=== PATIENT | female | born 1960 | race Caucasian/White ===

== ENCOUNTER 2024-12-11 09:14 | Emergency (ER) | payer BC, SELFPAY ==
[2024-12-11] VITALS (14 sets, daily range): BP systolic 104–149; BP diastolic 68–120; PULSE 76–95; RESP 14–18; TEMP 36.7–36.8; O2SAT 93–100; BMI 29.9
--- NOTE | 2024-12-11 09:44 | EKG12_ITS ---
Test Reason : CP Blood Pressure : */* mmHG Vent. Rate : 82 BPM Atrial Rate : 82 BPM P-R Int : 134 ms QRS Dur : 72 ms QT Int : 360 ms P-R-T Axes : 57 20 64 degrees QTcB Int : 420 ms Normal sinus rhythm Normal ECG Confirmed by FABIAN SHEPARD, CASEY ([id number]), acquisition editor LUIS ALFREDO SO ([id number]) on 12/13/2024 11:30:50 AM Referred By: Confirmed By: CASEY PERALTA MD
--- NOTE | 2024-12-11 09:47 | ED.VIS.CHEST ---
HPI History of Present Illness Chief Complaint: Chest Pain Informant: patient Narrative Narrative: Patient is 64-year-old female with history hypothyroidism (on levothyroxine), hypertension (not currently on any blood pressure medication after she had weight loss) and hyperlipidemia presenting for shortness of breath and shoulder pain. Patient states she has been short of breath for couple years but has noticed that she gets more tired over the past month. She gives an example of going down the basement to get some hamburger and by the time she gets back to the kitchen she has to sit down because she is exhausted. She denies any swelling of her legs. Denies any associated chest pain, sweating or nausea/jaw pain with the shortness of breath. Denies any cough. Denies history of DVT or PE. She also notes that over the past week she has had increased left shoulder pain. She states it is a very sharp pain in her shoulder that she describes as a burning/poking and stinging sensation. Sometimes it radiates up to her jaw or to her shoulder blade. She states it is worse with any movement of the shoulder and thinks that she has arthritis in her shoulder. She actually saw her PCP office on Friday this week (3 days ago) had a shoulder x-ray but she does not know the results. She was put on naproxen and since then has been having upset stomach with nausea and vomiting. She states she posted about her symptoms with naproxen on Facebook and her nephew who is a transplant doctor at [facility] was concerned that it could be cardiac symptoms and recommend she come to the ER for evaluation. Patient is a family history of cardiac disease and states this does not feel anything like when her parents had cardiac disease. She denies any chest pain or pressure. No other complaints or concerns reported at this time. Patient has any trauma to her shoulder. 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 Denies any numbness or weakness of her arm but sometimes does have tingling that goes down her arm and up into her shoulder. [facility] Medical History Normal colonoscopy c-spine for severe arthritis with radiculopathy lower buldging disc done 2010 Home Medications ?Medication ?Instructions ?Recorded ?Last Taken ?Type ascorbic acid (vitamin C) 500 mg 500 mg PO DAILY 05/04/18 12/10/24 History capsule aspirin 81 mg tablet,delayed 81 mg PO DAILY 05/04/18 12/10/24 History release (Adult Low Dose Aspirin) estradiol 1 mg tablet 1 mg PO DAILY 05/04/18 12/10/24 History potassium 99 mg tablet 10 meq PO DAILY 05/04/18 12/10/24 History semaglutide 2 mg/dose (8 mg/3 mL) 2 mg subcut QWEEK 12/19/23 12/07/24 History subcutaneous pen injector (Ozempic) atorvastatin 40 mg tablet 40 mg PO QHS cholesterol 12/11/24 12/10/24 History levothyroxine 75 mcg tablet 75 mcg PO DAILY disorder of 12/11/24 12/11/24 History thyroid gland magnesium 250 mg tablet 250 mg PO DAILY 12/11/24 12/10/24 History metformin 500 mg tablet 500 mg PO DAILY 12/11/24 12/10/24 History multivitamin (Daily Multi-Vitamin 1 tab PO DAILY 12/11/24 12/10/24 History tablet) omeprazole 20 mg capsule,delayed 20 mg PO DAILY 12/11/24 12/10/24 History release spironolactone 25 mg tablet 25 mg PO DAILY 12/11/24 12/10/24 History Allergy/AdvReac Type Severity Reaction Status Date / Time Penicillins Allergy Severe Hives Verified 12/11/24 09:15 erythromycin base (From AdvReac Severe loopy Verified 12/11/24 09:15 Erythrocin) Sulfa (Sulfonamide AdvReac Severe loopy Verified 12/11/24 09:15 Antibiotics) codeine AdvReac Intermediate loopy Verified 12/11/24 09:15 oxytetracycline (From AdvReac Intermediate Other Verified 12/11/24 09:15 Terramycin) sulfamethoxazole (From AdvReac Intermediate loopy Verified 12/11/24 09:15 Bactrim) tramadol AdvReac Intermediate vomiting Verified 12/11/24 09:15 and dizziness trimethoprim (From Bactrim) AdvReac Intermediate loopy Verified 12/11/24 09:15 Family History Other Cancer Diabetes High cholesterol Hypertension Surgical History History of total abdominal hysterectomy and bilateral salpingo-oophorectomy History of tonsillectomy History of cholecystectomy History of appendectomy Social History Smoking Status: Former smoker ROS ROS ED Constitutional Constitutional ED: Denies chills, fever(s) or sweats ENT ENT ED: Reports other Details: pain to left jaw ; Denies rhinorrhea or sore throat Cardiovascular Cardiovascular: Denies chest pain, palpitations or racing heartbeat Respiratory/Chest Respiratory/Chest: Reports dyspnea; Denies cough or sputum Gastrointestinal Gastrointestinal: Reports nausea and vomiting; Denies abdominal pain Genitourinary Genitourinary ED: Denies dysuria Musculoskeletal Musculoskeletal: Reports other Details: left shoulder pain ; Denies myalgias Integumentary Denies Abrasions or rash Neurologic Neurologic: Denies paresthesias or weakness Psychiatric Psychiatric: Denies anxiety Hematologic/Lymphatic Hematologic/Lymphatic: Denies easy bleeding or easy bruising EXAM Physical Exam Const Vital Signs: 12/11/24 09:15 12/11/24 09:27 12/11/24 09:45 Temperature 98.1 F Temperature Source Oral Pulse Rate 95 84 Respiratory Rate 16 16 Respiratory Effort Normal Non-Labored Blood Pressure 149/90 H 131/80 H Blood Pressure Mean 109 96 Pulse Ox 100 94 Oxygen Delivery Method Room Air 12/11/24 09:47 12/11/24 10:00 12/11/24 11:00 Temperature Temperature Source Pulse Rate 82 76 Respiratory Rate 17 14 Respiratory Effort Blood Pressure 127/81 H 123/76 H Blood Pressure Mean 96 91 Pulse Ox 96 96 Oxygen Delivery Method Room Air Positive well nourished and well developed General Appearance ED: well developed and NAD HEENT Reports moist mucous membranes HEENT Narrative: normal movement of the jaw, no trismus normocephalic and atraumatic Eyes PERRL Neck supple and no JVD Chest Wall inspection of chest normal and palpation of chest normal Resp normal respiratory effort and clear to auscultation bilaterally Auscultation: Negative for rhonchi or wheezes Cardio regular rate, regular rhythm and no murmurs Cardio Narrative: 2+ radial DP pulses Extremity Extremity Narrative: No joint effusion. Significant tenderness with range of motion especially external rotation of the right shoulder. No deformity of the shoulder. No associated warmth. Otherwise normal range of motion of the upper extremity. Neuro oriented x3 Sensorium / Orientation: awake and alert Motor Exam: Negative for general weakness Psych mental status grossly normal Skin no rashes or lesions noted and no wounds Heart Score History: Slightly/Non-Suspicious ECG: Normal Age: >45 - <65 years Risk Factors: 1 or 2 Risk Factors Troponin: >/=3 x Normal Limit Score: 4 MDM MDM MDM Narrative Medical decision making narrative: Patient evaluated for shortness of breath as well as left shoulder pain. Was concerned this could be referred cardiac pain. States her shortness of breath been going on for some time it is been worse over the past month. Shoulder pain is worse over the past week. There are certain movements that exacerbate the pain. She an outpatient x-ray a couple days ago but does not have the results. 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 Also reports history of cervical disc disease at C5/C5. Differential includes referred cardiac symptoms, PE, ACS, cervical radiculopathy, rotator cuff injury, pneumonia. Vital signs largely normal in the emergency room. Patient does have pain with range of motion of her shoulder but not have short arc range of motion pain. Low suspicion for septic joint. No fever or other systemic symptoms. No obvious joint effusion on exam. Normal intrinsic movements of the hand suspicion for an acute neurologic process. Workup does show a mild leukocytosis as well as a mild elevation of her hemoglobin. This is not specific. No significant left shift noted. She is otherwise low risk for PE and her D-dimer is normal. Low suspicion for pulmonary emboli and I do not think she requires a CTA. BMP largely normal. High-sensitivity troponin less than 6. Given the symptoms been going on for over a week I do not think she requires trending of her troponin. She is not having chest pain or ischemic EKG changes. Will follow-up outpatient with her primary care doctor for further evaluation of the shoulder pain. Will continue to alternate ibuprofen and Tylenol. Recommended follow-up for further outpatient cardiac workup should she be concerned. Given return precautions. Discharged home in stable condition. Lab Data Attestation: I reviewed the patient's lab results. Labs: Laboratory Results - last 24 hr 12/11/24 09:25 WBC 13.2 H RBC 5.02 Hgb 15.5 H Hct 47.3 H MCV 94.2 MCH 30.9 MCHC 32.8 RDW Std Deviation 43.4 RDW Coeff of Digna 12.6 Plt Count 355 MPV 8.7 Immature Gran % (Auto) 0.500 Neut % (Auto) 76.0 H Lymph % (Auto) 15.8 L [place] % (Auto) 6.0 Eos % (Auto) 1.3 Baso % (Auto) 0.4 Absolute Neuts (auto) 10.1 H Absolute Lymphs (auto) 2.09 Nucleated RBC % 0 D-Dimer Quant (PE/DVT) 0.27 Sodium 140 Potassium 4.3 Chloride 104 Carbon Dioxide 24.4 Anion Gap 11 BUN 22 H Creatinine 1.05 Estim Creat Clear Calc 62.00 Est GFR (MDRD) Non-Af 60 BUN/Creatinine Ratio 20.7 H Glucose 96 Calcium 9.7 Troponin T High Sens < 6 Radiography Chest X-Ray - ED: 2 View, Read by ED Physician, Read by Radiologist and No Acute Disease Diagnostic Testing: Clinical Impression(s) from Imaging Studies Chest X-Ray 12/11/24 11:11 IMPRESSION: NO ACUTE FINDINGS. Reading Location: [facility] Rhythm Strip Rhythm Strip: Sinus Rhythm Rate: 82 Ectopy: None EKG Initial EKG: Attestation: I personally reviewed and interpreted this EKG as follows: Interpretation: Sinus Rhythm Comments: Sinus rhythm at a rate of 82 bpm Normal axis Normal intervals Normal ST segments Prior EKG tracings: not available for review Prior: No Prior Discharge Plan Triage Chief Complaint: Chest Pain ED Provider: Susan Hodges Dx/Rx/DC Orders Clinical Impression: Dyspnea, Leukocytosis, Acute pain of left shoulder Instructions: ED Dyspnea, ED Shoulder Pain, Uncertain Cause Prescriptions: No Action aspirin [Adult Low Dose Aspirin] 81 mg tablet,delayed release (DR/EC) 81 mg PO DAILY estradiol 1 mg tablet 1 mg PO DAILY potassium 99 mg tablet 10 meq PO DAILY ascorbic acid (vitamin C) 500 mg capsule 500 mg PO DAILY Ozempic 2 mg/dose (8 mg/3 mL) pen injector 2 mg subcut QWEEK atorvastatin 40 mg tablet 40 mg PO QHS spironolactone 25 mg tablet 25 mg PO DAILY levothyroxine 75 mcg tablet 75 mcg PO DAILY omeprazole 20 mg capsule,delayed release(DR/EC) 20 mg PO DAILY multivitamin [Daily Multi-Vitamin] Tablet 1 tab PO DAILY metformin 500 mg tablet 500 mg PO DAILY magnesium 250 mg tablet 250 mg PO DAILY Primary Care Provider: Robert Briscoe Referrals: Robert Briscoe MD [Primary Care Provider] - Ever Forde DO [Med Staff - Active Staff] - Activity Restrictions/Additional Instructions: Your cardiac workup was very reassuring with a normal D-dimer, high-sensitivity troponin, EKG and chest x-ray. Your chest x-ray view of the shoulder does not show any significant arthritic changes however dedicated shoulder x-ray would be better which was performed earlier this week. Continue to alternate ibuprofen and Tylenol. Your white blood cell count was mildly elevated which is nonspecific. This can be elevated in and inflammatory processes or infection. If you develop a fever or signs of infection please return to the emergency room. Print Language: Ukrainian Disposition Disposition: Home, Self Care
[2024-12-11 09:57] LABS: Hematocrit 47.3 % (37-47); Hemoglobin 15.5 g/dL (12.0-15.0); Immature Granulocytes Count 0.070 X10^3/uL (0.0-0.0); Mean Corp Hgb Conc 32.8 g/dL (32-36); Mean Corpuscular Volume 94.2 fL (81-99); Mean Platelet Vol. 8.7 fl (6.2-12.0); NRBC Flagged by Analyzer 0 % (0-5); Platelet Count 355 K/mm3 (150-450); RBC Distribution Width CV 12.6 % (11.6-14.6); RBC Distribution Width SD 43.4 fl (35.1-43.9); Red Blood Count 5.02 M/mm3 (4.2-5.4); White Blood Count 13.2 K/mm3 (4.4-11.0)
[2024-12-11 10:30] LABS: D-Dimer Quantitative (DVT/PE) 0.27 FEU/ug/m (0.27-0.49)
[2024-12-11 10:56] LABS: Anion Gap 11 (5-15); BUN 22 mg/dL (4-19); BUN/Creat Ratio 20.7 RATIO (10-20); Calcium,Total 9.7 mg/dL (7.6-11.0); Carbon Dioxide 24.4 mmol/L (21.0-32.0); Chloride 104 mmol/L (98-108); Estimated Creatinine Clearance 62.00 ml/min (50-250); Glucose 96 mg/dL (70-99); Potassium 4.3 mmol/L (3.3-5.1)
[2024-12-11 10:57] LABS: Troponin T High Sensitivity < 6 ng/L (<=14)
--- NOTE | 2024-12-11 11:11 | RAD_ITS ---
PROCEDURE: CHEST PA AND LATERAL 12/11/2024 REASON FOR EXAM: SOB TECHNIQUE: CHEST PA AND LATERAL COMPARISON: None. FINDINGS: Hardware: None. Heart: The heart size is normal. Mediastinum: The mediastinal contour is unremarkable. Lungs: No focal consolidation, pleural effusion or pneumothorax. Bones: Degenerative changes are identified within the thoracic spine. RAD/Chest PA and Lateral IMPRESSION: NO ACUTE FINDINGS. Reading Location: [id number]
== END 2024-12-11 12:32 | disposition home or self-care (01) ==
PROVIDERS: Emergency Provider Emergency Medicine; PCP Family Medicine; Visit Provider Emergency Medicine
DX: R07.9 Chest pain, unspecified (principal); M25.512 Pain in left shoulder; D72.829 Elevated white blood cell count, unspecified; Z79.890 Hormone replacement therapy; Z87.891 Personal history of nicotine dependence; I10 Essential (primary) hypertension; R06.00 Dyspnea, unspecified; E03.9 Hypothyroidism, unspecified; E78.5 Hyperlipidemia, unspecified; Z90.49 Acquired absence of other specified parts of digestive tract; Z90.710 Acquired absence of both cervix and uterus
CPT/HCPCS: 71046; 80048; 84484; 85025; 85379; 93005; 99284; A4216